=== PATIENT | female | born 1955 | race Caucasian/White ===

== ENCOUNTER → 2017-07-04 | Day surgery (SDC) | payer MEDICARE ==
[~2017-07-04] MED LIST: LACTATED RINGER'S 1000 ML INJ 1,000 ML ONE; PROPOFOL 200 MG/20 ML AMP IV ONE
--- NOTE | 2017-07-04 10:07 | GIPROC ---
[facility] [address] [facility], [address] COLONOSCOPY PROCEDURE REPORT EXAM DATE: 07/04/2017 PATIENT NAME: Kaley Alves MR #: [id number] BIRTHDATE: 1955 ENDOSCOPIST: Marvel Rolle MD ORDER #: [id number] CHEESE PROCESSOR: Zeinab Mccoy RN STATUS: outpatient INDICATIONS: The patient is a 62 yr old female here for a colonoscopy due to follow up on colitis PROCEDURE PERFORMED: Colonoscopy with biopsy MEDICATIONS: None and Per Anesthesia. PREP QUALITY: good ESTIMATED BLOOD LOSS: None CONSENT: The patient understands the risks and benefits of the procedure and understands that these risks include, but are not limited to: sedation, allergic reaction, infection, perforation and/or bleeding. Alternative means of evaluation and treatment include, among others: physical exam, x-rays, and/or surgical intervention. The patient elects to proceed with this endoscopic procedure. medical equipment was checked for proper function. Hand hygiene and appropriate measures for infection prevention was taken. After the risks, benefits and alternatives of the procedure were thoroughly explained, Informed consent was verified, confirmed and timeout was successfully executed by the treatment team. A digital exam revealed no abnormalities of the rectum The EC-[id number] ([id number]) endoscope was introduced through the anus and advanced to the cecum, which was identified by both the appendix and ileocecal valve. The instrument was then slowly withdrawn as the colon was fully examined. COLON FINDINGS: Two small non-bleeding and shallow ulcers were found at the cecum. Biopsies were taken. The colon mucosa was otherwise normal. Multiple biopsies were performed. Retroflexed views revealed no abnormalities The scope was then completely withdrawn from the patient and the procedure terminated. PROCEDURE WITHDRAWAL TIME:9.0minutes ADVERSE EVENTS: There were no complications. IMPRESSIONS: 1. Two small ulcers were found at the cecum; biopsies were taken 2. The colon mucosa was otherwise normal; multiple biopsies were performed 3. Retroflexed views revealed no abnormalities 4. Revealed no abnormalities of the rectum RECOMMENDATIONS: 1. Await biopsy results. Biopsy results will not be ready for 7-10 days. If you don't hear from us in two weeks, call our office for results. 2. High fiber diet 3. Follow-up: GI Clinic 4 week(s) RECALL: Return 5 years Colonoscopy Marvel Rolle MD eSigned: Marvel Rolle MD 07/04/2017 10:07 AM cc: Bisi Perry M.D.
== END | disposition home or self-care (01) ==
LOC: ESDC 07:28
PROVIDERS: ATTEND Internal Medicine Gastroenterology
DX: K51.90 Ulcerative colitis, unspecified, without complications (principal)
CPT/HCPCS: 00811; 45380; 88305; J7120